=== PATIENT | male | born 1950 | race Caucasian/White ===

== ENCOUNTER 2017-04-19 23:42 | Inpatient (IN) | payer MEDICARE ==
[2017-04-19] MEDS ORDERED: Albuterol Sulfate 2.5 mg/0.5 ml Neb ONE (23:50)
[2017-04-20 01:28] LABS: Troponin I 0.011 ng/mL (< 0.028)
[2017-04-20] MEDS ORDERED: Piperacillin/Tazobactam 3.375 GM in Sodium Chloride 0.9% 100 ML IVPB SCH (01:30)
[2017-04-20 01:54] LABS: Bilirubin Negative (Negative); Blood, Urine Negative (Negative); Glucose, Urine (Dipstick) Negative (Negative); Ketone, Urine Trace mg/dL (Negative); Nitrite Negative (Negative); Protein, Urine (Dipstick) Negative (Neg-Trace); Urobilinogen 0.2 mg/dL (0.2-1.0)
[2017-04-20] MEDS ORDERED: Acetaminophen 325 MG TAB PO PRN (05:21)
[2017-04-20] MEDS ORDERED: Senokot 8.6 MG TAB PO PRN (05:21)
[2017-04-20] MEDS ORDERED: Albuterol Sulfate 2.5 mg/3 ml Neb NEB PRN (05:21)
[2017-04-20] MEDS ORDERED: Bisacodyl 5 MG TAB PO PRN (05:21)
[2017-04-20] MEDS ORDERED: Guaifenesin DM 100-10/5 ML UDCUP PO PRN (05:21)
[2017-04-20] MEDS ORDERED: Spiriva 18 MCG CAP (Box of 5 Caps) INH SCH (07:00)
[2017-04-20 07:14] LABS: #Lymphocytes 0.3 thou/uL (1.20-3.40); #Monocytes 0.1 thou/uL (0.11-0.59); #Neutrophils 11.8 thou/uL (1.40-6.50); %Eosinophils 0.4 % (0.0-10.0); %Lymphocytes 2.3 % (21.0-51.0); Hematocrit 41.2 % (42.0-52.0); Mean Platelet Volume 6.7 fL (7.4-10.4); Red Blood Cell (RBC) Count 4.23 mill/uL (4.70-6.10); White Blood Cell (WBC) Count 12.2 thou/uL (4.8-10.8)
--- NOTE | 2017-04-20 07:36 | HP-2 ---
DATE OF ADMISSION: 04/20/2017 CODE STATUS: FULL CODE. PRIMARY CARE PHYSICIAN: Dr. Willett in [place]. ATTENDING: Dr. Ildefonso Martinez. PGY-1: Dr. Nayeli Bryant. HISTORIAN: Patient and son. SPECIALIST: Dr. Mullen. CHIEF COMPLAINT: Acute shortness of breath. HISTORY OF PRESENT ILLNESS: A 67-year-old male with past medical history of COPD who presents as a transfer from [place] on [facility] due to acute shortness of breath at home this evening after he could not get the new oxygen tank connected. The patient is normally on 2-3 liters of oxygen chronically at home for his COPD and gets short of breath, without acutely. The patient was admitted in [place] last week for COPD exacerbation as well. In the ER in [place], the patient received DuoNeb, albute rol, methylprednisolone, 2 liters normal saline, 2 grams of magnesium sulfate. PAST MEDICAL HISTORY: Hypertension, COPD, history of colon cancer. PAST SURGICAL HISTORY: Cataract surgery, TURP, colon cancer resection, appendectomy, tonsillectomy, and surgery due to multiple rib fractures. MEDICATIONS: Albuterol, Symbicort, Buspirone 10 mg daily, DuoNeb, and prednisone 20 mg daily. FAMILY HISTORY: Noncontributory. SOCIAL HISTORY: A [id number] smoking history. Drinks one glass of cinnamon schnapps daily. Flash es drug use. REVIEW OF SYSTEMS: General: Denies fevers and chills, weight changes. Eyes: Denies vision change s or eye pain. Respiratory: Denies cough, congestion. Endorses shortness of breath. Cardiovascul ar: Denies chest pain, palpitations. Gastrointestinal: Denies nausea and vomiting. Genitourinary : Denies incontinence, dysuria. Skin: Denies rashes and lesions. Musculoskeletal: Denies pain a nd tenderness. Neurologic: Denies weakness and numbness. Psychiatric: Denies anxiety and depress ion. PHYSICAL EXAMINATION: VITAL SIGNS: Blood pressure 97/54, pulse 99, respiratory rate 28, T-max 97.5, pulse ox 95% on 2 lit ers. Current weight 60 kilograms. GENERAL: Alert and oriented x3, increased work of breathing, some mild distress. HEENT: Pupils equal, round, and reactive to light and accommodation. Extraocular muscles intact. NECK: Supple, no lymphadenopathy or thyromegaly. CARDIOVASCULAR: Regular rate and rhythm. No murmur or gallop appreciated. A 2+ radial pulses, 2+ pedal pulses. RESPIRATORY: Normal effort. Increased work of breathing, intercostal retractions, wheezing through out lung mayo, inspiratory and expiratory wheezing. ABDOMEN: Soft, nondistended, nontender to palpation. Positive bowel sounds throughout. EXTREMITIES: Clubbing, no cyanosis or edema. MUSCULOSKELETAL: Structure within normal limits. NEUROLOGIC: No focal deficits. Sensation within normal limits. GCS 15. PSYCHIATRIC: Appropriate. LABORATORY DATA AND IMAGING: Patient's CBC 18.8, hemoglobin 13.4, hematocrit 42.1, platelets 226. Chemistry: Sodium 140, potassium 4.2, chloride 83, bicarbonate 47, BUN 17, creatinine 0.66, glucose 115, CK-MB 2.2, troponin 0.011. UA: Trace ketones, negative blood, protein, leukocyte esterase, n itrites, red blood cells, white blood cells. GFR 99. ABG: pH 7.34, pCO2 of 102, pO2 199, bicarbon ate 56. EKG, sinus tachycardia, PVCs, left atrial enlargement. Chest x-ray, no acute cardiopulmona ry changes. Chest CT, emphysematous change, no acute process. ASSESSMENT AND PLAN: A 67-year-old male with acute shortness of breath, admitted for acute hypoxic hypercapnic respiratory failure secondary to chronic obstructive pulmonary disease exacerbation. 1. Acute hypoxic hypercapnic respiratory failure secondary to chronic obstructive pulmonary disease exacerbation. Patient was started on Levaquin 750 mg. The patient was provided with scheduled Duo Neb and albuterol p.r.n. The patient has continuous O2 at 2-3 liters with a goal of greater than 92 % O2 saturation. The patient was started on maintenance fluids as the patient was hypotensive, main tenance fluids of normal saline were started at 100 mL an hour for insensible losses. Oral predniso ne 40 mg daily was started and Spiriva daily was started. 2. Chronic obstructive pulmonary disease exacerbation. See plan above. 3. Hypertension. Patient is currently hypotensive and was provided with maintenance fluids and was also given 2 liter bolus of normal saline in the ED. The patient does not know what hypertension m edication he takes at home.
--- NOTE | 2017-04-20 08:52 | CT ---
PRELIMINARY REPORT/[facility]/EMERGENCY AFTER HOURS PROCEDURE: EXAM: CT Chest Without Intravenous Contrast EXAM DATE/TIME: Exam ordered 04/20/2017 12:55 AM CLINICAL HISTORY: 67 years old, male; Pain; Chest pain; Type not specified TECHNIQUE: Axial computed tomography images of the chest without intravenous contrast. All CT scans at this [facility] use one or more dose reduction techniques, viz.: automated exposure control; ma/Kv adjustment per patient size (including targeted exams where dose is matched to indication; i.e. head); or itera tive reconstruction technique. Coronal reformatted images were created and reviewed. COMPARISON: No relevant prior studies available. FINDINGS: Lungs: Moderate centrilobular emphysematous changes are present with architectural distortion and ar eas of bullous change. Pleural space: Normal. No pneumothorax. No significant effusion. Heart: Normal. No cardiomegaly. No significant pericardial effusion. Mediastinum: The trachea is normal. Thyroid: The thyroid gland is normal. Bones/joints: Normal. No acute fracture. No dislocation. Soft tissues: There is a partially healed posterior LEFT 11th rib fracture. Vasculature: The aorta demonstrates mild atherosclerotic calcification. The pulmonary arteries are n ot enlarged. There is mild atherosclerotic calcification of the coronary arteries. Lymph nodes: Normal. No enlarged lymph nodes. IMPRESSION: 1. No acute thoracic pathology is identified. 2. Moderate centrilobular emphysematous changes are present with architectural distortion and areas of bullous change. Thank you for allowing us to participate in the care of your patient. Dictated and Authenticated by: Ildefonso Yao MD 04/20/2017 1:24 AM Central Time ([place] \T\ [place]) FINAL REPORT CT CHEST WITHOUT CONTRAST: Date: 04/20/17 HISTORY: COPD exacerbation. Sepsis criteria. Dyspnea. Negative chest x-ray. COMPARISON: CT chest/abdomen/pelvis dated 01/27/11. FINDINGS: Moderate to severe emphysematous changes. There is a nodule in the posterior segment of the right lo wer lobe which is similar to the comparison examination measuring approximately 5.0 mm, unchanged. T here is peribronchial vascular thickening right lower lobe with bronchiectasis and a few tree-in-bud opacities. This is new from the comparison examination. There is some relative volume loss of the r ight lung relative to the left. There is extensive mucus throughout the trachea with some mucus plug ging of the lower lobes. No pneumothorax or large effusion. Mild vascular calcification of aorta and great vessels. Extensive coronary artery calcifications. No adenopathy. No thoracic spine compression fracture. Upper abdomen is relatively unremarkable. Extensive calcifications of the celiac trunk and superior mesenteric artery. 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 No displaced rib fracture. There is a subacute left 11th rib fracture. IMPRESSION: 1. Worsening peribronchial vascular cuffing right lower lobe, as well as a few tree-in-bud opacitie s can be seen with bronchopneumonia. 2. Extensive mucus throughout the trachea. There is also mucus plugging in the right lower lobe whi ch can be seen with bronchopneumonia versus aspiration. 3. Extensive emphysematous changes. 4. Similar appearance of the pulmonary nodule right lower lobe. Follow-up chest radiograph recommended. Findings are in agreement with the preliminary report by Katelyn. POS: OFF
[2017-04-20] MEDS: Enoxaparin Sodium 40 MG/0.4 ML SYRINGE SC SCH (09:33)
[2017-04-20] MEDS: predniSONE 20 MG TAB PO SCH (09:33)
[2017-04-20] MEDS: Sodium Chloride 0.9% 1,000 ML IV SCH ×2 (09:34→17:00)
[2017-04-20] MEDS: Nicotine 21 MG PATCH TD SCH (09:34)
[2017-04-20] MEDS: Mometasone/Formoterol 120 PUFF INHALER INH SCH ×2 (09:38→18:21)
[2017-04-20] MEDS ORDERED: Tamsulosin HCl 0.4 MG CAP PO SCH (12:15)
[2017-04-20 13:09] LABS: Anion Gap 15 mmol/L (10-20); BUN (Urea Nitrogen) 21 mg/dL (8.4-25.7); Calc. Creatinine Clearance 0 mL/min (70-130); Calcium 9.4 mg/dL (7.8-10.44); Carbon Dioxide 37 mmol/L (23-31); Chloride 87 mmol/L (98-107); Estimated GFR-MDRD Greater than 90
[2017-04-20 13:20] LABS: Band 19 % (5-11); Hematocrit 39.3 % (42.0-52.0); Mean Platelet Volume 7.1 fL (7.4-10.4); Neutrophil 79 % (42-75); Red Blood Cell (RBC) Count 4.01 mill/uL (4.70-6.10); White Blood Cell (WBC) Count 9.6 thou/uL (4.8-10.8)
--- NOTE | 2017-04-20 13:51 | HP ---
CHIEF COMPLAINT: Shortness of breath. HISTORY OF PRESENT ILLNESS: This is a 67-year-old male with past history of COPD who presents as a transfer from [place] on [facility]. Early last evening he could not switch off his oxygen tank and started having progressive difficulty breathing, ended up calling EMS and being seen and transferred here. He had admission last week for similar COPD exacerbation and went home evidently doing relatively well. This morning he still complained of trouble breathing and cough, but no fever or chills. He also complains of being unable to urinate and feeling a fullness of his belly and a general discomfort. In the ER was given DuoNebs and methylprednisolone, 2 liters normal saline and mag sulfate. PAST MEDICAL HISTORY: Hypertension, COPD, history of colon cancer. PAST SURGICAL HISTORY: Positive for TURP, colon cancer resection, appendectomy , tonsillectomy, and a rib fracture surgery. MEDICATIONS: Albuterol, Symbicort, BuSpar, and prednisone 20 mg. ALLERGIES: No known drug allergies. FAMILY HISTORY: Noncontributory. SOCIAL HISTORY: Smokes 1 pack a day, has about a 27-oiaw-cuky history. Enjoys [employer]. No drug use. REVIEW OF SYSTEMS: GENERAL: Negative for fever or chills. EYES: Negative for vision changes or eye pain. RESPIRATORY: See HPI. CARDIOVASCULAR: No chest pain or palpitations. GASTROINTESTINAL: No nausea or vomiting. GENITOURINARY: Positive for obstructive symptoms. See HPI. SKIN: Without rash or lesion. MUSCULOSKELETAL: Without pain or tenderness. NEUROLOGIC: Without weakness or numbness. PSYCHIATRIC: Without anxiety or depression. PHYSICAL EXAMINATION: VITAL SIGNS: Most recent vitals; T-max of 97.8, pulse of 100, respirations 14, O2 sat of 96% on 2.5 liters room air, BP 108/69 GENERAL: The patient is in no acute distress, resting comfortably and is generally unhappy. HEENT: Eyes without icterus or injection. Moist mucous membranes. NECK: Trachea midline, thin with bilateral Hiram's sign. CARDIAC: Distant heart sounds, irregular, without murmur. No peripheral edema. LUNGS: With diffuse inspiratory and expiratory wheezing and crackles at bilateral bases. GASTROINTESTINAL: Bowel sounds positive. Nontender to palpation. He does have some fullness of the lower abdomen in general. GENITOURINARY: Normal circumcised male. MUSCULOSKELETAL: Without deformity or fracture or contracture. NEURO: Motor 5/5 in all 4 extremities. Sensation intact to light touch as well. SKIN: Without lesion or rash. PSYCHIATRIC: Mood and affect appropriate. He is in not pleasant during exam, expressing much frustration with the medical system LABORATORY DATA: White count 12.2, hemoglobin 12.8, platelets 196. Lactic acid 2. Troponin 0.011, trace ketones. Microbiology nothing. Chest CT is positive for emphysematous changes and some nodule in the posterior segment right lower lobe, apparently unchanged and a few tree-in-bud opacities and bronchiectasis of the right lower lobe, as well. ASSESSMENT AND PLAN: A 67-year-old male with: 1. Acute hypoxic hypercapnic respiratory failure secondary to chronic obstructive pulmonary disease exacerbation. We will start Levaquin. Continue scheduled DuoNebs, continue steroids, incentive spirometer to bedside and continue controlled medications. 2. Chronic obstructive pulmonary disease exacerbation. See above. 3. Hypertension. We will hold off medications as he is currently not requiring any and monitor for any signs of sepsis related hypertension. 4. Anemia. We will send workup and trend. 5. Urinary retention. Attempted to place a small coude catheter, but the patient refused. He refused to derobe and upon attempt, started cursing at me and telling me to get out of the room. We will repeat a bladder scan and if it remains elevated or if he develops signs of renal failure we will go ahead and consult for management. 6. DVT prophylaxis with Lovenox and GI prophylaxis. MTDD
[2017-04-20 19:20] VITALS: BMI 20.9
[2017-04-20] MEDS ORDERED: FLU VACC TS2017-18 (>65YR) 0.5 ML SYRINGE IM ONE (21:00)
--- NOTE | 2017-04-21 00:42 | CON ---
DATE OF CONSULTATION: 04/20/2017 REASON FOR CONSULTATION: Consult note from Dr. Eze Avina for urinary retention. The patie nt was admitted for COPD exacerbation. HISTORY OF PRESENT ILLNESS: This is a 67-year-old male, who is not very happy about being here and there is a history of COPD that was transferred from [place] for COPD exacerbation. He has a histor y of home O2. He states that his breathing became worse yesterday. He also started having difficul ty urinating, which he states it is a new symptom for him. He does say he typically just stands up at his recliner and urinates in a urinal and he does urinate throughout the night, but he is on a schedule at home. He was hypotensive in the ER and was given fluids and he has been able to urinate very little since his initial ER appearance. There is about 50 mL in a bedside urinal. There has been two attempts of catheter placement that have failed at ast one of these attempt was because of the patient got extremely upset and refused further attempt. PAST MEDICAL HISTORY: Hypertension, COPD, and colon cancer. PAST SURGICAL HISTORY: Colon cancer resection, appendectomy, tonsillectomy, has had a rib fracture. There is a history of a TURP and a surgical history on a previous note. The patient now denies th is. MEDICATIONS: Albuterol, Symbicort, BuSpar, and prednisone. ALLERGIES: No known drug allergies. FAMILY HISTORY: Negative. SOCIAL HISTORY: He smokes 1 pack per day and does drink alcohol daily. Denies drug use. REVIEW OF SYSTEMS: Negative other than shortness of breath and inability to urinate. He does not a nswer every question because he is upset about the situation. General: He denies fever or chills, denied blurred vision or double vision. Respiratory: Short of breath and difficulty breathing. C ardiovascular: Denies chest pain or rapid heart rate. GI: He does not respond. There is no histo ry of reported nausea or vomiting. Musculoskeletal: He says he has left lower extremity leg pain. Neurologic: Denies weakness or double vision. Psychiatric: He is very upset. Skin: No obvious rashes or itching. Hematologic: Denies any night sweats. PHYSICAL EXAMINATION: VITAL SIGNS: Blood pressure 121/72, his blood pressure is 97% on 2.5 L, respirations 16, heart rate 106 and temperature 97.8. GENERAL: He is alert, upset oxygen in place. HEENT: Normocephalic, atraumatic. RESPIRATORY: Unlabored on the oxygen, tachycardic. ABDOMEN: Distended. Genitourinary: He has got a normal circumcised male phallus. He did not let me examine his testicl es and he declined a rectal exam. EXTREMITIES: He has got no obvious cyanosis or edema. Moving all extremities well. His left leg i s propped up. Under sterile conditions, we placed a 16 Vietnamese coude tipped [facility] catheter put 10 mL in the balloon and placed this to gravity. Before we left the room about 600 mL of urine had already returned and that was still putting out. LABORATORY DATA: White blood cell count 9.6, hemoglobin 12.3, platelets 218,000 and creatinine 0.6. His urine had trace ketones, but otherwise was negative. ASSESSMENT AND PLAN: A 67-year-old male who was admitted for chronic obstructive pulmonary disease exacerbation. He has a difficult [facility] catheterization. I presume due to an enlarged prostate. Ho wever, he is declining a complete exam for this. We were able to get the catheter placed with good return of urine. He has been started on Flomax, which we would recommend continuing going forward.
[2017-04-21 05:31] LABS: #Lymphocytes 0.5 thou/uL (1.20-3.40); #Monocytes 0.9 thou/uL (0.11-0.59); #Neutrophils 11.7 thou/uL (1.40-6.50); %Eosinophils 0.1 % (0.0-10.0); %Lymphocytes 4.1 % (21.0-51.0); %Monocytes 6.6 % (0.0-10.0); Hematocrit 34.1 % (42.0-52.0); Mean Platelet Volume 7.1 fL (7.4-10.4); Red Blood Cell (RBC) Count 3.51 mill/uL (4.70-6.10); White Blood Cell (WBC) Count 13.1 thou/uL (4.8-10.8)
[2017-04-21] MEDS: Nicotine 21 MG PATCH TD SCH (05:32)
[2017-04-21 06:01] LABS: BUN (Urea Nitrogen) 22 mg/dL (8.4-25.7); Calc. Creatinine Clearance 99 mL/min (70-130); Calcium 8.9 mg/dL (7.8-10.44); Estimated GFR-MDRD Greater than 90
[2017-04-21] MEDS: Mometasone/Formoterol 120 PUFF INHALER INH SCH (06:06)
[2017-04-21 06:10] LABS: Anion Gap 16 mmol/L (10-20); Carbon Dioxide 33 mmol/L (23-31); Chloride 92 mmol/L (98-107)
--- NOTE | 2017-04-21 06:41 | PDOC.FM ---
- Subjective Subjective: Pt appears to be back at baseline. He has no complaints this morning. - Objective MAR Reviewed: Yes Vital Signs & Weight: Vital Signs (12 hours) Temp Pulse Resp BP Pulse Ox 04/21/17 06:06 101 H 20 97 04/21/17 06:05 101 H 20 97 04/21/17 04:00 98.1 F 101 H 22 H 123/76 97 04/21/17 02:19 117 H 20 97 04/21/17 00:00 97.8 F 107 H 22 H 111/73 97 04/20/17 22:26 111 H 18 97 04/20/17 20:00 98.1 F 126 H 22 H 109/64 93 L 04/20/17 19:56 118 H 20 99 04/20/17 19:38 98.1 F 119 H 22 H 97 Weight Weight 64.41 kg I&O: 04/19/17 04/20/17 04/21/17 06:59 06:59 06:59 Intake Total 490 Output Total 1350 Balance -860 Result Diagrams: 04/21/17 04:48 04/21/17 04:48 <Jana Bustamante - Last Filed: 04/21/17 10:41> - Objective Vital Signs & Weight: Vital Signs (12 hours) Temp Pulse Resp BP Pulse Ox 04/21/17 13:48 111 H 20 96 04/21/17 09:33 109 H 22 H 96 04/21/17 08:00 97.9 F 109 H 22 H 96 04/21/17 07:31 97.9 F 115 H 16 109/71 96 04/21/17 06:06 101 H 20 97 04/21/17 06:05 101 H 20 97 Weight Weight 64.41 kg I&O: 04/20/17 04/21/17 04/22/17 06:59 06:59 06:59 Intake Total 490 Output Total 1350 Balance -860 Result Diagrams: 04/21/17 04:48 04/21/17 04:48 <Eze Avina - Last Filed: 04/21/17 17:21> Phys Exam - Physical Examination Constitutional: NAD Respiratory: wheezing present inspiratory and expiratory wheezes slightly tachycardic Gastrointestinal: soft, non-tender, no distention Psychiatric: A&O x 3 <Jana Bustamante - Last Filed: 04/21/17 10:41> Dx/Plan (1) Acute exacerbation of chronic obstructive pulmonary disease (COPD) Code(s): J44.1 - CHRONIC OBSTRUCTIVE PULMONARY DISEASE W (ACUTE) EXACERBATION Status: Acute Plan: Pt appears back at baseline. Maintaining saturations on 1.5L of O2 (on 2-3L at home) Will discharge home with short course of steroids and antibiotics. (2) Urinary retention Code(s): R33.9 - RETENTION OF URINE, UNSPECIFIED Status: Acute Plan: likely secondary to BPH, although pt declined exam. Continue flomax will discuss with urology plan to keep ochoa in place, and follow-up outpatient. (3) Tobacco abuse Code(s): Z72.0 - TOBACCO USE Status: Acute Plan: Smoking cessation discussed, however pt has no intentions of quitting. (4) Anxiety Code(s): F41.9 - ANXIETY DISORDER, UNSPECIFIED Status: Acute Plan: Continue Buspirone. <Jana Bustamante - Last Filed: 04/21/17 10:41> - Plan Plan: Seen and examined and discussed with Dr. Bustamante. I agree with her note except as below. ROS: no fever, chills; +cough, sputum prod; no n/v/diarrhea/constipation <Eze Avina - Last Filed: 04/21/17 17:21>
[2017-04-21 07:32] VITALS: BP 109/71; TEMP 97.9
[2017-04-21] MEDS ORDERED: Tamsulosin HCl 0.4 MG CAP PO SCH (09:00)
[2017-04-21] MEDS ORDERED: busPIRone HCl 10 MG TAB PO SCH (09:00)
[2017-04-21] MEDS: predniSONE 20 MG TAB PO SCH (09:12)
[2017-04-21] MEDS: Enoxaparin Sodium 40 MG/0.4 ML SYRINGE SC SCH (09:13)
--- NOTE | 2017-04-25 12:20 | EKG ---
Test Reason : Blood Pressure : / mmHG Vent. Rate : 113 BPM Atrial Rate : 113 BPM P-R Int : 126 ms QRS Dur : 060 ms QT Int : 300 ms P-R-T Axes : 075 072 078 degrees QTc Int : 411 ms Sinus tachycardia with occasional Premature ventricular complexes Possible Left atrial enlargement Nonspecific ST abnormality Abnormal ECG No specific ST-T segment abnormalities Normal axis Confirmed by BRANDYN SANDERS ([id number]), acquisition editor AGATHA BURGOS ([id number] on 04/25/2017 12:20:02 PM Referred By: Confirmed By:BRANDYN SANDERS
== END 2017-04-21 17:55 | disposition home or self-care (01) | DRG 190 ==
LOC: ERS 23:42 → T4-B 04-20 04:09
PROVIDERS: ADMIT Family Medicine; ATTEND Family Medicine
PROC: 5A09357 Assistance with Respiratory Ventilation, Less than 24 Consecutive Hours, Continuous Positive Airway Pressure (ICD-10-PCS; principal; 2017-04-20)
DX: J44.1 Chronic obstructive pulmonary disease with (acute) exacerbation (principal); J96.01 Acute respiratory failure with hypoxia; J96.02 Acute respiratory failure with hypercapnia; I95.9 Hypotension, unspecified; Z99.81 Dependence on supplemental oxygen; D64.9 Anemia, unspecified; I10 Essential (primary) hypertension; R33.9 Retention of urine, unspecified; Z85.038 Personal history of other malignant neoplasm of large intestine; Z90.49 Acquired absence of other specified parts of digestive tract; F17.210 Nicotine dependence, cigarettes, uncomplicated; F41.9 Anxiety disorder, unspecified
CPT/HCPCS: 36415; 71250; 80048; 81003; 82553; 83605; 84484; 85025; 87040; 87086; 93005; 94640; 94644; 94660; 94760; 96365; 96366; 96367; A4216; G8996-GN-CI; G8997-GN-CI; J1650; J2543; J3370; J7050; J7506; J7611; J7620